=== PATIENT | female | born 1955 | race Caucasian/White ===

== ENCOUNTER 2019-10-28 10:20 | Inpatient (IN) ==
[2019-10-28] MEDS ORDERED: Naloxone 0.4 MG/ML INJ IVP PRN (13:20)
[2019-10-28 14:40] LABS: Adenovirus Not Detected (Not Detect); Coronavirus 229E Not Detected (Not Detect); Coronavirus HKU1 Not Detected (Not Detect); Coronavirus NL63 Not Detected (Not Detect); Coronavirus OC43 Not Detected (Not Detect); Human Metapneumovirus Not Detected (Not Detect); Human Rhinovirus/Enterovirus Not Detected (Not Detect)
[2019-10-28 14:41] LABS: Bordetella Pertussis Not Detected (Not Detect); Chlamydophila pneumoniae Not Detected (Not Detect); Influenza A Subtype 2009 H1 Not Detected (Not Detect); Influenza B Not Detected (Not Detect); Mycoplasma pneumoniae Not Detected (Not Detect); Parainfluenza Virus 1 Not Detected (Not Detect); Parainfluenza Virus 2 Not Detected (Not Detect); Parainfluenza Virus 3 Not Detected (Not Detect); Parainfluenza Virus 4 Not Detected (Not Detect); Respiratory Syncytial Virus Not Detected (Not Detect)
[2019-10-28] MEDS ORDERED: IPRATROPIUM/ALBUTEROL SULFATE 120 PUFF INHALER IH PRN (14:45)
[2019-10-28] MEDS ORDERED: Acetaminophen 325 MG TABLET PO PRN (14:55)
[2019-10-28] MEDS: Piperacillin/Tazobactam 3.375 GM in 0.9 % Sodium Chloride Mini Bag 100 ML IVPB SCH ×2 (15:26→23:15)
[2019-10-28] MEDS ORDERED: SODIUM CHLORIDE 0.9% IVPB SCH (16:00)
[2019-10-28] MEDS ORDERED: VANCOMYCIN IVPB SCH (16:00)
[2019-10-28 16:20] LABS: Basophils % 0.1 %; Hematocrit 33.2 % (35.3-44.9); Hemoglobin 10.8 g/dL (11.5-15.4); Immature Granulocytes % 2.9 % (0-4); Lymphocytes # 1.1 K/mcL (0.6-4.6); Lymphocytes % 7.2 %; Mean Corpuscular HGB Conc 32.5 g/dL (31.6-35.5); Mean Corpuscular Hemoglobin 34.4 pg (28.0-33.3); Mean Corpuscular Volume 105.7 fL (83.0-100.0); Monocytes # 0.7 K/mcL (0.0-1.3); Monocytes % 4.7 %; Neutrophils # 12.9 K/mcL (1.6-8.9); Platelet Count 176 K/mcL (140-400); Red Blood Count 3.14 M/mcL (3.82-4.97); Red Cell Distribution Width 12.1 % (11.5-14.5); Segmented Neutrophils % 85.1 %; White Blood Count 15.2 K/mcL (4.3-11.1)
[2019-10-28 16:42] LABS: Alanine Aminotransferase 23 Units/L (7-52); Albumin 3.3 g/dL (3.5-5.7); Albumin/Globulin Ratio 0.7 (1.1-2.2); Alkaline Phosphatase 70 Units/L (34-104); Aspartate Amino Transferase 22 Units/L (13-39); BUN/Creatinine Ratio 34 (6-26); Bilirubin,Indirect 0.3 mg/dL (0.0-1.0); Bilirubin,Total 0.3 mg/dL (0.3-1.0); Blood Urea Nitrogen 35 mg/dL (8-23); C-Reactive Protein 197 mg/L (Less than 10); Carbon Dioxide 20 mEq/L (23-29); Chloride 106 mEq/L (98-107); Globulin 4.6 g/dL (2.4-3.5); Glucose 148 mg/dL (70-105); Lactate Dehydrogenase 210 Units/L (140-271); Osmolality,Calculated 291 (280-300); Sodium 135 mEq/L (136-145); Total Protein 7.9 g/dL (6.4-8.9); eGFR For African Americans > 60 (> 60); eGFR For Non-African Americans 54 (> 60)
[2019-10-28 17:03] LABS: Ferritin > 1500 ng/mL (10-120)
[2019-10-28 17:42] LABS: INR 1.2; Prothrombin Time 13.8 Seconds (9.4-12.1)
[2019-10-28 17:45] LABS: D-Dimer 555 ng/mLFEU (0-500)
[2019-10-28 17:47] LABS: Fibrinogen > 1000 mg/dL (169-393)
[2019-10-28] MEDS: Vancomycin 1,250 MG/262.5 ML IV.SOLN IVPB SCH (18:25)
[2019-10-28] MEDS: Gabapentin 300 MG CAPSULE PO SCH (20:00)
[2019-10-28] MEDS: GuaiFENesin/Dextromethorphan TABLET PO SCH (20:00)
[2019-10-29 03:34] LABS: D-Dimer 743 ng/mLFEU (0-500); Fibrinogen 911 mg/dL (169-393)
[2019-10-29 03:37] LABS: Basophils % 0.1 %; Eosinophils % 0.1 %; Hematocrit 32.4 % (35.3-44.9); Hemoglobin 10.4 g/dL (11.5-15.4); Immature Granulocytes % 2.5 % (0-4); Lymphocytes # 1.6 K/mcL (0.6-4.6); Lymphocytes % 9.4 %; Mean Corpuscular HGB Conc 32.1 g/dL (31.6-35.5); Mean Corpuscular Hemoglobin 34.4 pg (28.0-33.3); Mean Corpuscular Volume 107.3 fL (83.0-100.0); Mean Platelet Volume 10.7 fL (9.4-12.4); Monocytes % 6.3 %; Neutrophils # 13.5 K/mcL (1.6-8.9); Platelet Count 185 K/mcL (140-400); Red Blood Count 3.02 M/mcL (3.82-4.97); Red Cell Distribution Width 12.2 % (11.5-14.5); Segmented Neutrophils % 81.6 %; White Blood Count 16.5 K/mcL (4.3-11.1)
[2019-10-29 03:38] LABS: BUN/Creatinine Ratio 38 (6-26); Blood Urea Nitrogen 38 mg/dL (8-23); C-Reactive Protein 130 mg/L (Less than 10); Calcium 8.8 mg/dL (8.6-10.3); Carbon Dioxide 22 mEq/L (23-29); Chloride 107 mEq/L (98-107); Glucose 112 mg/dL (70-105); Osmolality,Calculated 290 (280-300); Potassium 4.2 mEq/L (3.5-5.1); Sodium 135 mEq/L (136-145); eGFR For African Americans > 60 (> 60); eGFR For Non-African Americans 55 (> 60)
[2019-10-29 04:03] LABS: Ferritin > 1500 ng/mL (10-120)
[2019-10-29] MEDS: *HR* Enoxaparin 40 MG/0.4 ML SYRINGE SQ SCH (05:07)
[2019-10-29] MEDS: Vancomycin 1,250 MG/262.5 ML IV.SOLN IVPB SCH (05:08)
[2019-10-29] MEDS: valACYclovir 500 MG TABLET PO SCH (08:21)
[2019-10-29] MEDS: GuaiFENesin/Dextromethorphan TABLET PO SCH ×2 (08:21→21:34)
[2019-10-29] MEDS: Gabapentin 300 MG CAPSULE PO SCH ×2 (08:21→21:34)
[2019-10-29] MEDS ORDERED: Furosemide 20 MG/2 ML VIAL IVP ONE (11:34)
[2019-10-29] MEDS ORDERED: Piperacillin/Tazobactam 3.375 GM in 0.9 % Sodium Chloride Mini Bag 100 ML IVPB SCH (14:00)
[2019-10-29] MEDS ORDERED: Azithromycin 500 MG in 0.9 % Sodium Chloride 250 ML IVPB SCH (16:00)
[2019-10-29] MEDS ORDERED: Vancomycin 1,250 MG/262.5 ML IV.SOLN IVPB SCH (22:00)
[2019-10-29] MEDS: Cefepime HCl 1,000 MG in Water for inj. (sterile) 10 ML IVP SCH (23:53)
[2019-10-30] MEDS: *HR* Enoxaparin 40 MG/0.4 ML SYRINGE SQ SCH (06:00)
[2019-10-30 06:07] LABS: Basophils % 0.1 %; Eosinophils # 0.2 K/mcL (0.0-0.6); Eosinophils % 1.5 %; Hematocrit 33.8 % (35.3-44.9); Hemoglobin 10.8 g/dL (11.5-15.4); Immature Granulocytes % 2.3 % (0-4); Lymphocytes # 2.1 K/mcL (0.6-4.6); Lymphocytes % 20.7 %; Mean Corpuscular Hemoglobin 34.5 pg (28.0-33.3); Mean Platelet Volume 10.4 fL (9.4-12.4); Monocytes # 0.8 K/mcL (0.0-1.3); Monocytes % 8.3 %; Neutrophils # 6.7 K/mcL (1.6-8.9); Platelet Count 168 K/mcL (140-400); Red Blood Count 3.13 M/mcL (3.82-4.97); Red Cell Distribution Width 12.2 % (11.5-14.5); Segmented Neutrophils % 67.1 %
[2019-10-30 06:13] LABS: D-Dimer 702 ng/mLFEU (0-500)
[2019-10-30 06:14] LABS: Fibrinogen 816 mg/dL (169-393)
[2019-10-30 06:41] LABS: BUN/Creatinine Ratio 31 (6-26); Blood Urea Nitrogen 37 mg/dL (8-23); Calcium 8.8 mg/dL (8.6-10.3); Carbon Dioxide 25 mEq/L (23-29); Chloride 107 mEq/L (98-107); Glucose 80 mg/dL (70-105); Osmolality,Calculated 294 (280-300); Potassium 3.9 mEq/L (3.5-5.1); Sodium 138 mEq/L (136-145); eGFR For African Americans 54 (> 60); eGFR For Non-African Americans 45 (> 60)
[2019-10-30 06:45] LABS: Ferritin > 1500 ng/mL (10-120)
[2019-10-30] MEDS: Cefepime HCl 1,000 MG in Water for inj. (sterile) 10 ML IVP SCH ×2 (07:36→16:00)
[2019-10-30] MEDS: valACYclovir 500 MG TABLET PO SCH (07:37)
[2019-10-30] MEDS: GuaiFENesin/Dextromethorphan TABLET PO SCH ×2 (07:37→19:36)
[2019-10-30] MEDS: Gabapentin 300 MG CAPSULE PO SCH ×2 (07:37→19:36)
[2019-10-30 08:06] LABS: C-Reactive Protein 83 mg/L (Less than 10)
[2019-10-30] MEDS ORDERED: Aminoglycoside Consult 1 EACH MC ONE (09:21)
[2019-10-30] MEDS: Piperacillin/Tazobactam 3.375 GM in 0.9 % Sodium Chloride Mini Bag 100 ML IVPB SCH (09:34)
[2019-10-30] MEDS ORDERED: Doxycycline 100 MG in 0.9 % Sodium Chloride Mini Bag 100 ML IVPB ONE (10:00)
[2019-10-30] MEDS: Doxycycline 100 MG in 0.9 % Sodium Chloride Mini Bag 100 ML IVPB SCH ×2 (10:21→22:18)
[2019-10-30] MEDS ORDERED: 0.9 % Sodium Chloride 1,000 ML IVC SCH (13:45)
[2019-10-30] MEDS ORDERED: Doxycycline 100 MG in 0.9 % Sodium Chloride Mini Bag 100 ML IVPB SCH (18:00)
[2019-10-31] MEDS: Cefepime HCl 1,000 MG in Water for inj. (sterile) 10 ML IVP SCH ×3 (01:26→15:33)
[2019-10-31 05:02] LABS: INR 1.3; Prothrombin Time 14.5 Seconds (9.4-12.1)
[2019-10-31 09:35] LABS: Basophils % 0.3 %; Eosinophils # 0.3 K/mcL (0.0-0.6); Eosinophils % 2.7 %; Hematocrit 32.1 % (35.3-44.9); Hemoglobin 10.2 g/dL (11.5-15.4); Immature Granulocytes % 2.1 % (0-4); Lymphocytes # 1.8 K/mcL (0.6-4.6); Lymphocytes % 18.9 %; Mean Corpuscular HGB Conc 31.8 g/dL (31.6-35.5); Mean Corpuscular Hemoglobin 34.5 pg (28.0-33.3); Mean Corpuscular Volume 108.4 fL (83.0-100.0); Mean Platelet Volume 10.6 fL (9.4-12.4); Monocytes # 0.6 K/mcL (0.0-1.3); Monocytes % 6.6 %; Neutrophils # 6.5 K/mcL (1.6-8.9); Platelet Count 157 K/mcL (140-400); Red Blood Count 2.96 M/mcL (3.82-4.97); Red Cell Distribution Width 12.1 % (11.5-14.5); Segmented Neutrophils % 69.4 %; White Blood Count 9.4 K/mcL (4.3-11.1)
[2019-10-31 09:53] LABS: BUN/Creatinine Ratio 23 (6-26); Blood Urea Nitrogen 24 mg/dL (8-23); Calcium 8.8 mg/dL (8.6-10.3); Carbon Dioxide 27 mEq/L (23-29); Chloride 108 mEq/L (98-107); Glucose 92 mg/dL (70-105); Osmolality,Calculated 290 (280-300); Potassium 3.9 mEq/L (3.5-5.1); Sodium 138 mEq/L (136-145); eGFR For African Americans > 60 (> 60); eGFR For Non-African Americans 52 (> 60)
[2019-10-31] MEDS: GuaiFENesin/Dextromethorphan TABLET PO SCH ×2 (11:05→20:49)
[2019-10-31] MEDS: Gabapentin 300 MG CAPSULE PO SCH ×2 (11:05→20:49)
[2019-10-31] MEDS ORDERED: 0.9 % Sodium Chloride 1,000 ML IVC SCH (11:30)
[2019-10-31] MEDS ORDERED: MethylPREDNISolone 40 MG/ML VIAL IVP SCH (12:02)
[2019-10-31] MEDS: Doxycycline 100 MG CAPSULE PO SCH ×2 (15:25→20:49)
[2019-10-31] MEDS: valACYclovir 500 MG TABLET PO SCH (15:33)
[2019-11-01] MEDS: MethylPREDNISolone 40 MG/ML VIAL IVP SCH ×2 (00:12→08:06)
[2019-11-01] MEDS: Cefepime HCl 1,000 MG in Water for inj. (sterile) 10 ML IVP SCH ×2 (00:12→08:04)
[2019-11-01 00:33] LABS: Basophils % 0.3 %; Eosinophils % 0.3 %; Hematocrit 33.2 % (35.3-44.9); Hemoglobin 10.6 g/dL (11.5-15.4); Immature Granulocytes % 1.6 % (0-4); Lymphocytes % 9.6 %; Mean Corpuscular HGB Conc 31.9 g/dL (31.6-35.5); Mean Corpuscular Volume 106.4 fL (83.0-100.0); Mean Platelet Volume 10.7 fL (9.4-12.4); Monocytes # 0.3 K/mcL (0.0-1.3); Monocytes % 2.4 %; Neutrophils # 8.8 K/mcL (1.6-8.9); Platelet Count 157 K/mcL (140-400); Red Blood Count 3.12 M/mcL (3.82-4.97); Segmented Neutrophils % 85.8 %; White Blood Count 10.3 K/mcL (4.3-11.1)
[2019-11-01 00:50] LABS: BUN/Creatinine Ratio 22 (6-26); Blood Urea Nitrogen 23 mg/dL (8-23); Calcium 9.4 mg/dL (8.6-10.3); Carbon Dioxide 26 mEq/L (23-29); Chloride 106 mEq/L (98-107); Glucose 140 mg/dL (70-105); Osmolality,Calculated 286 (280-300); Potassium 4.3 mEq/L (3.5-5.1); Sodium 135 mEq/L (136-145); eGFR For African Americans > 60 (> 60); eGFR For Non-African Americans 54 (> 60)
[2019-11-01] MEDS ORDERED: *HR* Enoxaparin 40 MG/0.4 ML SYRINGE SQ SCH (06:00)
[2019-11-01] MEDS: Gabapentin 300 MG CAPSULE PO SCH (08:03)
[2019-11-01] MEDS: Doxycycline 100 MG CAPSULE PO SCH (08:03)
[2019-11-01] MEDS: valACYclovir 500 MG TABLET PO SCH (08:03)
[2019-11-01] MEDS: GuaiFENesin/Dextromethorphan TABLET PO SCH (08:03)
[2019-11-01 11:18] LABS: Serine Protease-3 Antibody 29 AU/mL (0-19)
[2019-11-01 11:27] VITALS: BP 109/68
[2019-11-02 11:14] LABS: ANA IgG by ELISA NONE DETECTED (None Detected)
[2019-11-04 07:26] LABS: Mycoplasma pneumoniae IgG 1.55 U/L (<=0.09)
== END 2019-11-01 15:20 | disposition home or self-care (01) | DRG 871 ==
LOC: SUATTDRO 12:06 → 2NENU 12:06 → 2ANU 10-31 15:04
PROVIDERS: ADMIT Internal Medicine; ATTEND Student in an Organized Health Care Education/Training Program